=== PATIENT | male | born 1935 | race Caucasian/White ===

== ENCOUNTER 2017-02-17 10:48 | Emergency (ER) | payer MEDICARE ==
[2017-02-17 11:14] LABS: #Basophils 0.1 thou/uL (0.0-0.2); #Eosinphils 0.1 thou/uL (0.0-0.7); #Lymphocytes 2.3 thou/uL (1.20-3.40); #Monocytes 0.7 thou/uL (0.11-0.59); #Neutrophils 6.4 thou/uL (1.40-6.50); %Basophils 0.9 % (0.0-1.0); %Eosinophils 1.4 % (0.0-10.0); %Lymphocytes 24.1 % (21.0-51.0); %Monocytes 7.5 % (0.0-10.0); Hematocrit 43.3 % (42.0-52.0); Mean Platelet Volume 8.4 fL (7.4-10.4); Red Blood Cell (RBC) Count 4.48 mill/uL (4.70-6.10); White Blood Cell (WBC) Count 9.7 thou/uL (4.8-10.8)
[2017-02-17] MEDS ORDERED: Fentanyl 100 MCG/2 ML VIAL ONE (11:30)
[2017-02-17] MEDS ORDERED: Ketorolac Tromethamine 30 MG/ML VIAL ONE (11:30)
[2017-02-17 11:40] LABS: ALT (SGPT) 11 U/L (8-55); AST (SGOT) 16 U/L (5-34); Alkaline Phosphatase 53 U/L (40-150); Anion Gap 13 mmol/L (10-20); BUN (Urea Nitrogen) 22 mg/dL (8.4-25.7); Bilirubin, Total 0.6 mg/dL (0.2-1.2); Calc. Creatinine Clearance 0 mL/min (70-130); Calcium 10.2 mg/dL (7.8-10.44); Carbon Dioxide 26 mmol/L (23-31); Chloride 104 mmol/L (98-107); Estimated GFR-MDRD 48; Globulin 3.3 g/dL (2.4-3.5); Lipase 39 U/L (8-78); Protein, Total 7.4 g/dL (5.8-8.1)
[2017-02-17] MEDS ORDERED: metroNIDAZOLE 500 MG/100 ML BAG ONE (11:51)
--- NOTE | 2017-02-17 12:57 | CT ---
ABDOMEN CT WITH CONTRAST PELVIC CT WITH CONTRAST: History: Left flank pain, left lower quadrant pain. Patient has a history of diverticulitis. Comparison: 09-09-11 Technique: An abdomen and pelvic CT are performed with IV contrast. Enteric contrast was not adminis tered. Coronal reformatted images are submitted for interpretation. FINDINGS: ABDOMEN CT: Lung bases are clear. Heart size is normal. No significant pericardial fluid. The descending thoraci c aorta and abdominal aorta have an overall normal caliber. The aortic bifurcation is unremarkable. There is atherosclerosis. No periaortic fat stranding. Intra and extrahepatic portal vein is patent. There are stable hypodensities involving the liver which are too small to characterize but are stati stically favored to be cysts. The spleen, pancreas, and adrenal glands have appropriate enhancement. There is mild bilateral renal cortical thinning. No evidence of hydronephrosis, nephrolithiasis, or perinephric fat stranding. Stable exophytic hypodensity emanating from the left kidney compatible wi th a simple cyst. Bilateral ureters have a normal caliber. No hydroureter, periureteral fat strandin g or ureterolithiasis. No gastrohepatic, retrocrural or periportal lymphadenopathy. No mesenteric mass, lymphadenopathy, fr ee air or free fluid. Evaluation of the alimentary canal is limited by lack of oral contrast. Gastric mucosa, duodenum, an d multiple normal in caliber small bowel loops are noted. Ileocecal junction is normal. Appendix is not appreciated. No inflammation of the cecal apex. There are scattered diverticula throughout a non distended, nondilated colon. The majority of the diverticula involve the descending colon and sigmoi d colon. There is no evidence of chronic wall thickening or pericolonic fat stranding to suggest div erticulitis. There are post surgical changes. PELVIC CT: Urinary bladder is unremarkable. No pelvic mass, lymphadenopathy, free air or free fluid. There are no osteoblastic or osteolytic lesions. There are degenerative changes of the lumbar spine. IMPRESSION: 1. No acute abnormality in the abdomen or pelvis. 2. Diverticulosis, without evidence of diverticulitis. POS: [facility]
[2017-02-17 13:03] LABS: Lactic Acid - Sepsis 2.2 mmol/L (0.5-2.2)
[2017-02-17 13:05] LABS: Bilirubin Negative (Negative); Blood, Urine Small (Negative); Glucose, Urine (Dipstick) Negative (Negative); Ketone, Urine Negative (Negative); Nitrite Negative (Negative); Protein, Urine (Dipstick) Negative (Neg-Trace); Urobilinogen 0.2 mg/dL (0.2-1.0)
[2017-02-17 13:07] LABS: Bacteria/HPF None Seen HPF (None Seen); Hyaline Casts/LPF 0-3 HYALINE CAST LPF (0-3 Hyaline); Squamous Epithelial None Seen HPF (0-3); WBC/HPF 0-3 HPF (0-3)
[2017-02-17] MEDS ORDERED: ISOVUE-370 76%-LOCM 1 ML ONE (16:01)
== END 2017-02-17 13:53 | disposition home or self-care (01) ==
LOC: ERS 10:48
DX: K57.92 Diverticulitis of intestine, part unspecified, without perforation or abscess without bleeding (principal); I10 Essential (primary) hypertension; E78.5 Hyperlipidemia, unspecified; Z79.899 Other long term (current) drug therapy; Z79.82 Long term (current) use of aspirin
CPT/HCPCS: 36415; 74177; 80053; 81003; 81015; 83605; 83690; 85025; 96361; 96365; 96367; 96375; J0744; J1885; J3010

== ENCOUNTER 2017-11-18 11:21 | Emergency (ER) | payer MEDICARE ==
--- NOTE | 2017-11-18 12:24 | RAD ---
LEFT ANKLE 3 VIEWS: Date: 11/18/17 HISTORY: 82-year-old male with history of left ankle injury yesterday. FINDINGS: Lateral soft tissue swelling. No acute fracture or dislocation. Plantar enthesophytes. IMPRESSION: Minimal degenerative changes without fracture or dislocation. Lateral soft tissue swelling. POS: [facility]
== END 2017-11-18 12:38 | disposition home or self-care (01) ==
LOC: ERS 11:21
DX: S93.402A Sprain of unspecified ligament of left ankle, initial encounter (principal); E78.5 Hyperlipidemia, unspecified; I10 Essential (primary) hypertension; K21.9 Gastro-esophageal reflux disease without esophagitis; Z71.6 Tobacco abuse counseling; X50.0XXA Overexertion from strenuous movement or load, initial encounter; Y93.01 Activity, walking, marching and hiking
CPT/HCPCS: 99406

== ENCOUNTER 2020-09-13 09:12 | Outpatient (CLI) | payer MEDICARE ==
[2020-09-13 10:31] LABS: Hemoglobin 13.6 g/dL (13.5-17.5); Mean Corpuscular Hemoglobin 31.3 pg (27.0-33.0); Mean Corpuscular Volume 94.9 fl (81.2-95.1); Mean Platelet Volume 11.4 fl (7.4-10.4); Platelet Count 219 10x3/uL (150-450); RBC Distribution Width 13.1 % (11.5-14.5); Red Blood Cell (RBC) Count 4.34 10x6/uL (4.32-5.72); White Blood Cell (WBC) Count 8.2 10x3/uL (3.5-10.5)
[2020-09-13 11:18] LABS: Anion Gap 14 mmol/L (10-20); BUN (Urea Nitrogen) 26 mg/dL (8.4-25.7); Calc. Creatinine Clearance 0 mL/min (70-130); Calcium 10.4 mg/dL (7.8-10.44); Carbon Dioxide 26 mmol/L (23-31); Chloride 103 mmol/L (98-107); Glucose 73 mg/dL (83-110); Potassium 4.3 mmol/L (3.5-5.1); Sodium 139 mmol/L (136-145)
[2020-09-13 16:44] LABS: SARS-CoV-2 PCR by NAA Not Detected (NotDetected)
== END 2020-09-13 09:13 | disposition home or self-care (01) ==
LOC: LABBT 09:12
PROVIDERS: ATTEND Urology
DX: Z01.818 Encounter for other preprocedural examination (principal); N40.1 Benign prostatic hyperplasia with lower urinary tract symptoms; Z20.822 Contact with and (suspected) exposure to COVID-19
CPT/HCPCS: 80048; 85027; 93005; U0003; U0005; 87635; 93010

== ENCOUNTER 2020-09-18 11:48 | Observation (INO) | payer MEDICARE ==
[2020-09-17 16:22] VITALS: BMI 29.2
[2020-09-18] MEDS ORDERED: Levofloxacin 500 mg/D5W 100 ml Premix Bag ONE (13:35)
[2020-09-18] MEDS ORDERED: Fentanyl 100 MCG/2 ML VIAL ONE ×2 (14:37→17:15)
[2020-09-18] MEDS ORDERED: Famotidine/PF 20 mg/2ml Vial ONE (14:37)
[2020-09-18] MEDS ORDERED: Lidocaine 1% PF 5 ML VIAL ONE (15:00)
[2020-09-18] MEDS ORDERED: Ondansetron PF 4 MG/2 ML Vial ONE (15:00)
[2020-09-18] MEDS ORDERED: PROPOFOL 200 MG/20 ML VIAL ONE (15:00)
[2020-09-18] MEDS ORDERED: Metoclopramide HCl 10 MG/2 ML VIAL ONE (15:00)
[2020-09-18] MEDS ORDERED: Ondansetron PF 4 MG/2 ML Vial IVP PRN (16:21)
[2020-09-18] MEDS ORDERED: hydrALAZINE 20 MG/ML VIAL SLOW IVP PRN (16:21)
[2020-09-18] MEDS ORDERED: Zolpidem Tartrate 5 MG TAB PO PRN (16:21)
[2020-09-18] MEDS ORDERED: Oxybutynin 5 MG TAB PO PRN (16:21)
[2020-09-18] MEDS ORDERED: Ketorolac Tromethamine 30 MG/ML VIAL IVP PRN (16:21)
[2020-09-18] MEDS ORDERED: diphenhydrAMINE 50 MG/ML VIAL IVP PRN (16:21)
[2020-09-18] MEDS ORDERED: Morphine 4 MG/ML VIAL SLOW IVP PRN (16:28)
[2020-09-18] MEDS ORDERED: HYDROcodone/Acetaminophen 5/325 mg Tablet ONE (20:35)
[2020-09-18] MEDS: HYDROcodone/Acetaminophen 5/325 mg Tablet PO PRN (20:40)
[2020-09-18] MEDS: Sodium Chloride 0.9% 1,000 ML IV SCH (20:43)
[2020-09-18] MEDS: Docusate 100 MG CAP PO SCH (20:43)
[2020-09-18] MEDS ORDERED: Doxepin HCl 10 MG CAP PO SCH (21:00)
[2020-09-18] MEDS ORDERED: Atorvastatin Calcium 10 MG TAB PO SCH (21:00)
[2020-09-19] MEDS ORDERED: Ketorolac Tromethamine 30 MG/ML VIAL ONE (01:55)
[2020-09-19] MEDS ORDERED: HYDROcodone/Acetaminophen 5/325 mg Tablet ONE (01:55)
[2020-09-19] MEDS: HYDROcodone/Acetaminophen 5/325 mg Tablet PO PRN (02:03)
[2020-09-19] MEDS ORDERED: Cepastat Lozenges 1 LOZ PO PRN (02:36)
[2020-09-19] MEDS ORDERED: Levothyroxine Sodium 25 MCG TAB PO SCH (06:00)
[2020-09-19] MEDS: Sodium Chloride 0.9% 1,000 ML IV SCH (06:47)
[2020-09-19] MEDS ORDERED: Tamsulosin HCl 0.4 MG CAP ONE (08:01)
[2020-09-19] MEDS ORDERED: Aspirin 81 mg Enteric Coated Tablet PO SCH (09:00)
[2020-09-19] MEDS ORDERED: Allopurinol 100 MG TAB PO SCH (09:00)
[2020-09-19] MEDS ORDERED: Tamsulosin HCl 0.4 MG CAP PO SCH (09:00)
[2020-09-19] MEDS ORDERED: Lisinopril/Hydrochlorothiazide 20/25 mg Tablet PO SCH (09:00)
[2020-09-19] MEDS ORDERED: ALPRAZolam 0.25 MG TAB PO SCH (09:00)
[2020-09-19] MEDS ORDERED: Naproxen 500 MG TAB PO SCH (09:00)
[2020-09-19] MEDS: Docusate 100 MG CAP PO SCH (09:47)
[2020-09-19 12:42] VITALS: BP 158/86; TEMP 97.7
== END 2020-09-19 12:40 | disposition home or self-care (01) ==
LOC: SDC 11:48 → PACU-TCU 16:20
PROVIDERS: ADMIT Urology; ATTEND Urology
PROC: 0VT08ZZ Resection of Prostate, Via Natural or Artificial Opening Endoscopic (ICD-10-PCS; principal; 2020-09-18)
DX: N40.1 Benign prostatic hyperplasia with lower urinary tract symptoms (principal); R39.12 Poor urinary stream; R39.15 Urgency of urination; R39.16 Straining to void; R35.0 Frequency of micturition; I10 Essential (primary) hypertension; E78.5 Hyperlipidemia, unspecified; K21.9 Gastro-esophageal reflux disease without esophagitis; Z79.899 Other long term (current) drug therapy
CPT/HCPCS: 52601; 88305; 96374; G0378 ×2; J1885; J1956; J2405; J2704; J2765; J3010; S0028

== ENCOUNTER 2020-09-28 16:48 | Inpatient (IN) | payer MEDICARE ==
[2020-09-28 17:15] LABS: Bilirubin Negative (Negative); Blood, Urine 3+ (Negative); Clarity Turbid (Clear); Glucose, Urine (Dipstick) Normal (Negative); Ketone, Urine Negative (Negative); Leukocyte 75 Leu/uL (Negative); Nitrite Negative (Negative); Protein, Urine (Dipstick) 100 mg/dL (Neg-Trace); RBC/HPF Greater than 50 HPF (0-3); Specific Gravity, Urine 1.017 (1.002-1.036); Urobilinogen Normal mg/dL (Less than 2); pH, Urine 6.5 (5.0-9.0)
[2020-09-28 17:16] LABS: Bacteria/HPF 4+ HPF (None Seen); Squamous Epithelial None Seen HPF (0-3); WBC/HPF Greater than 50 HPF (0-3)
[2020-09-28 17:31] LABS: #Basophils 0.1 thou/uL (0.0-0.2); #Eosinphils 0.2 thou/uL (0.0-0.7); #Lymphocytes 2.6 thou/uL (1.20-3.40); #Monocytes 0.6 thou/uL (0.11-0.59); #Neutrophils 5.2 thou/uL (1.40-6.50); %Basophils 0.9 % (0.0-1.0); %Eosinophils 1.8 % (0.0-10.0); %Lymphocytes 30.4 % (21.0-51.0); %Monocytes 7.1 % (0.0-10.0); %Neutrophils 59.8 % (42.0-75.0); Hemoglobin 12.9 g/dL (14.0-18.0); Mean Corpuscular HGB CONC 35.3 g/dL (32.0-36.0); Mean Corpuscular Hemoglobin 33.6 pg (27.0-31.0); Mean Platelet Volume 8.5 fL (7.4-10.4); Platelet Count 239 thou/uL (130-400); RBC Distribution Width 11.5 % (11.5-14.5); Red Blood Cell (RBC) Count 3.84 mill/uL (4.70-6.10); White Blood Cell (WBC) Count 8.7 thou/uL (4.8-10.8)
[2020-09-28 17:46] LABS: ALT (SGPT) 15 U/L (8-55); AST (SGOT) 21 U/L (5-34); Albumin 3.7 g/dL (3.4-4.8); Alkaline Phosphatase 57 U/L (40-110); Anion Gap 14 mmol/L (10-20); BUN (Urea Nitrogen) 30 mg/dL (8.4-25.7); Bilirubin, Total 0.5 mg/dL (0.2-1.2); CK (CPK) 111 U/L (30-200); Calc. Creatinine Clearance 0 mL/min (70-130); Carbon Dioxide 21 mmol/L (23-31); Chloride 105 mmol/L (98-107); Glucose 118 mg/dL (83-110); Lipase 56 U/L (8-78); Magnesium 1.7 mg/dL (1.6-2.6); Potassium 3.7 mmol/L (3.5-5.1); Protein, Total 6.7 g/dL (5.8-8.1); Sodium 136 mmol/L (136-145)
[2020-09-28] MEDS ORDERED: cefTRIAXone\\ROCEPHIN 1 GM VIAL ONE (18:20)
[2020-09-28] MEDS ORDERED: Acetaminophen 325 MG TAB PO PRN (19:51)
[2020-09-28] MEDS ORDERED: Bisacodyl 5 MG TAB PO PRN (19:51)
[2020-09-28] MEDS ORDERED: Ondansetron PF 4 MG/2 ML Vial IVP PRN (19:51)
[2020-09-28] MEDS: Sodium Chloride 0.9% 1,000 ML IV SCH (22:08)
[2020-09-28] MEDS: Famotidine/PF 20 mg/2ml Vial SLOW IVP SCH (22:20)
[2020-09-28] MEDS: Heparin 5,000 UNITS/ML VIAL SC SCH (22:20)
[2020-09-28 22:29] VITALS: BMI 27.0
[2020-09-29 03:29] LABS: SARS-CoV-2 NAA Rapid Test Not Detected (NotDetected)
[2020-09-29 05:26] LABS: #Basophils 0.1 thou/uL (0.0-0.2); #Eosinphils 0.3 thou/uL (0.0-0.7); #Lymphocytes 3.1 thou/uL (1.20-3.40); #Monocytes 0.7 thou/uL (0.11-0.59); #Neutrophils 4.1 thou/uL (1.40-6.50); %Basophils 0.9 % (0.0-1.0); %Eosinophils 3.7 % (0.0-10.0); %Lymphocytes 37.4 % (21.0-51.0); %Monocytes 8.9 % (0.0-10.0); %Neutrophils 49.1 % (42.0-75.0); Mean Corpuscular HGB CONC 34.9 g/dL (32.0-36.0); Mean Corpuscular Hemoglobin 33.3 pg (27.0-31.0); Mean Corpuscular Volume 95.3 fL (78.0-98.0); Mean Platelet Volume 8.7 fL (7.4-10.4); Platelet Count 218 thou/uL (130-400); RBC Distribution Width 11.7 % (11.5-14.5); White Blood Cell (WBC) Count 8.4 thou/uL (4.8-10.8)
[2020-09-29 05:46] LABS: ALT (SGPT) 13 U/L (8-55); AST (SGOT) 18 U/L (5-34); Albumin 3.3 g/dL (3.4-4.8); Alkaline Phosphatase 53 U/L (40-110); Anion Gap 9 mmol/L (10-20); BUN (Urea Nitrogen) 25 mg/dL (8.4-25.7); Bilirubin, Total 0.3 mg/dL (0.2-1.2); Calc. Creatinine Clearance 59 mL/min (70-130); Calcium 9.2 mg/dL (7.8-10.44); Carbon Dioxide 24 mmol/L (23-31); Chloride 108 mmol/L (98-107); Globulin 2.7 g/dL (2.4-3.5); Glucose 91 mg/dL (83-110); Potassium 3.6 mmol/L (3.5-5.1); Sodium 137 mmol/L (136-145)
[2020-09-29] MEDS: Heparin 5,000 UNITS/ML VIAL SC SCH ×3 (08:53→22:10)
[2020-09-29] MEDS: Sodium Chloride 0.9% 1,000 ML IV SCH (08:54)
[2020-09-29] MEDS ORDERED: Magnevist 469MG/ML 20 ML VIAL ONE (13:06)
[2020-09-29] MEDS: VANCOMYCIN 1.25 GM/250 ML BAG 1.25 GM in Premix Bag 1 BAG IVPB SCH (14:05)
[2020-09-29 15:09] LABS: Free T4 (Free Thyroxine) 0.78 ng/dL (0.70-1.48); Thyroid Stimulating Hormone 0.504 uIU/mL (0.35-4.94)
[2020-09-29] MEDS: Piperacillin/Tazobactam 3.375 GM in Sodium Chloride 0.9% 100 ML IVPB SCH ×2 (16:15→23:59)
[2020-09-29] MEDS: Famotidine/PF 20 mg/2ml Vial SLOW IVP SCH (22:10)
[2020-09-30] MEDS: Piperacillin/Tazobactam 3.375 GM in Sodium Chloride 0.9% 100 ML IVPB SCH (05:30)
[2020-09-30] MEDS: Heparin 5,000 UNITS/ML VIAL SC SCH (08:09)
[2020-09-30] MEDS ORDERED: Vancomycin 1 GM in Premix Bag 1 BAG IVPB ONE (08:25)
[2020-09-30] MEDS ORDERED: ALPRAZolam 0.25 MG TAB PO PRN (12:09)
[2020-09-30] MEDS: VANCOMYCIN 1.25 GM/250 ML BAG 1.25 GM in Premix Bag 1 BAG IVPB SCH (13:31)
[2020-09-30] MEDS ORDERED: hydrALAZINE 20 MG/ML VIAL SLOW IVP PRN (15:53)
[2020-09-30] MEDS ORDERED: Labetalol HCl 100 MG/20 ML VIAL SLOW IVP PRN (15:53)
[2020-09-30] MEDS: Amlodipine 5 MG TAB PO SCH (20:41)
[2020-09-30] MEDS: Atorvastatin Calcium 10 MG TAB PO SCH (20:41)
[2020-09-30] MEDS: Famotidine/PF 20 mg/2ml Vial SLOW IVP SCH (20:41)
[2020-10-01 04:27] LABS: #Basophils 0.1 thou/uL (0.0-0.2); #Eosinphils 0.3 thou/uL (0.0-0.7); #Lymphocytes 2.9 thou/uL (1.20-3.40); #Monocytes 0.9 thou/uL (0.11-0.59); %Basophils 1.1 % (0.0-1.0); %Eosinophils 3.6 % (0.0-10.0); %Lymphocytes 31.1 % (21.0-51.0); %Monocytes 10.1 % (0.0-10.0); Hemoglobin 12.9 g/dL (14.0-18.0); Mean Corpuscular HGB CONC 35.2 g/dL (32.0-36.0); Mean Corpuscular Hemoglobin 33.5 pg (27.0-31.0); Mean Platelet Volume 8.8 fL (7.4-10.4); Platelet Count 217 thou/uL (130-400); RBC Distribution Width 11.8 % (11.5-14.5); Red Blood Cell (RBC) Count 3.84 mill/uL (4.70-6.10); White Blood Cell (WBC) Count 9.2 thou/uL (4.8-10.8)
[2020-10-01 04:51] LABS: Anion Gap 10 mmol/L (10-20); BUN (Urea Nitrogen) 16 mg/dL (8.4-25.7); Calc. Creatinine Clearance 69 mL/min (70-130); Calcium 9.8 mg/dL (7.8-10.44); Carbon Dioxide 23 mmol/L (23-31); Chloride 107 mmol/L (98-107); Glucose 83 mg/dL (83-110); Magnesium 1.6 mg/dL (1.6-2.6); Potassium 3.6 mmol/L (3.5-5.1); Sodium 136 mmol/L (136-145)
[2020-10-01] MEDS: Levothyroxine Sodium 25 MCG TAB PO SCH (05:07)
[2020-10-01] MEDS: Tamsulosin HCl 0.4 MG CAP PO SCH (08:07)
[2020-10-01] MEDS: Allopurinol 100 MG TAB PO SCH (08:07)
[2020-10-01 12:56] LABS: Vancomycin, Trough 8.6 ug/mL
[2020-10-01] MEDS ORDERED: VANCOMYCIN 2 GRAM/400 ML BAG 2 GM in Premix Bag 1 BAG IVPB SCH (13:15)
[2020-10-01] MEDS: VANCOMYCIN 1.25 GM/250 ML BAG 1.25 GM in Premix Bag 1 BAG IVPB SCH (20:03)
[2020-10-01] MEDS: Famotidine/PF 20 mg/2ml Vial SLOW IVP SCH (20:23)
[2020-10-01] MEDS: Amlodipine 5 MG TAB PO SCH (20:23)
[2020-10-01] MEDS: Atorvastatin Calcium 10 MG TAB PO SCH (20:23)
[2020-10-02 04:45] LABS: #Eosinphils 0.4 thou/uL (0.0-0.7); #Lymphocytes 2.9 thou/uL (1.20-3.40); #Monocytes 0.9 thou/uL (0.11-0.59); #Neutrophils 4.1 thou/uL (1.40-6.50); %Basophils 0.6 % (0.0-1.0); %Eosinophils 4.7 % (0.0-10.0); %Lymphocytes 34.7 % (21.0-51.0); %Monocytes 10.7 % (0.0-10.0); %Neutrophils 49.4 % (42.0-75.0); Hemoglobin 12.9 g/dL (14.0-18.0); Mean Corpuscular HGB CONC 33.9 g/dL (32.0-36.0); Mean Corpuscular Hemoglobin 32.4 pg (27.0-31.0); Mean Corpuscular Volume 95.6 fL (78.0-98.0); Mean Platelet Volume 8.2 fL (7.4-10.4); Platelet Count 222 thou/uL (130-400); RBC Distribution Width 11.9 % (11.5-14.5); Red Blood Cell (RBC) Count 3.98 mill/uL (4.70-6.10); White Blood Cell (WBC) Count 8.3 thou/uL (4.8-10.8)
[2020-10-02 05:11] LABS: Anion Gap 11 mmol/L (10-20); BUN (Urea Nitrogen) 17 mg/dL (8.4-25.7); Calc. Creatinine Clearance 66 mL/min (70-130); Calcium 9.7 mg/dL (7.8-10.44); Carbon Dioxide 23 mmol/L (23-31); Chloride 106 mmol/L (98-107); Glucose 85 mg/dL (83-110); Magnesium 1.7 mg/dL (1.6-2.6); Potassium 4.2 mmol/L (3.5-5.1); Sodium 136 mmol/L (136-145)
[2020-10-02] MEDS: Levothyroxine Sodium 25 MCG TAB PO SCH (05:12)
[2020-10-02 08:13] VITALS: TEMP 98.1
[2020-10-02] MEDS: Tamsulosin HCl 0.4 MG CAP PO SCH (08:13)
[2020-10-02] MEDS: Allopurinol 100 MG TAB PO SCH (08:13)
[2020-10-02] MEDS ORDERED: Lisinopril/Hydrochlorothiazide 20/25 mg Tablet PO SCH (09:00)
[2020-10-02 12:31] VITALS: BP 128/70
[2020-10-02] MEDS ORDERED: VANCOMYCIN 2 GRAM/400 ML BAG 2 GM in Premix Bag 1 BAG IVPB SCH (13:00)
== END 2020-10-02 14:26 | disposition home or self-care (01) | DRG 309 ==
LOC: ERS 16:48 → 2SW 18:35 → OBSVTOIN 09-29 19:00 → 2NO 09-30 14:20
PROVIDERS: ADMIT Internal Medicine; ATTEND Internal Medicine
PROC: 3E1K78Z Irrigation of Genitourinary Tract using Irrigating Substance, Via Natural or Artificial Opening (ICD-10-PCS; principal; 2020-09-30)
DX: R00.1 Bradycardia, unspecified (principal); N39.0 Urinary tract infection, site not specified; E87.1 Hypo-osmolality and hyponatremia; N17.9 Acute kidney failure, unspecified; N99.820 Postprocedural hemorrhage of a genitourinary system organ or structure following a genitourinary system procedure; T83.511A Infection and inflammatory reaction due to indwelling urethral catheter, initial encounter; Z20.822 Contact with and (suspected) exposure to COVID-19; D35.2 Benign neoplasm of pituitary gland; I10 Essential (primary) hypertension; R31.0 Gross hematuria; E78.5 Hyperlipidemia, unspecified; E03.9 Hypothyroidism, unspecified; I25.10 Atherosclerotic heart disease of native coronary artery without angina pectoris; E86.0 Dehydration; I48.91 Unspecified atrial fibrillation; K21.9 Gastro-esophageal reflux disease without esophagitis; M19.90 Unspecified osteoarthritis, unspecified site; F41.9 Anxiety disorder, unspecified; M10.9 Gout, unspecified; I08.3 Combined rheumatic disorders of mitral, aortic and tricuspid valves; Y83.8 Other surgical procedures as the cause of abnormal reaction of the patient, or of later complication, without mention of misadventure at the time of the procedure; E86.9 Volume depletion, unspecified; B95.7 Other staphylococcus as the cause of diseases classified elsewhere; Y84.6 Urinary catheterization as the cause of abnormal reaction of the patient, or of later complication, without mention of misadventure at the time of the procedure; Z79.899 Other long term (current) drug therapy; Z79.82 Long term (current) use of aspirin; Z79.890 Hormone replacement therapy; Z98.890 Other specified postprocedural states; Z87.440 Personal history of urinary (tract) infections
CPT/HCPCS: 36415; 70450; 70553; 71045; 80048; 80053; 80202; 81003; 81015; 82533; 82550; 83690; 83735; 83880; 84439; 84443; 84484; 85025; 87077; 87086; 87186; 87635; 93005; 93306; 93880; 96365; 96372; 96375; A9579; G0378; J0360; J0696; J1644; J2543; J3370; J3490; S0028; U0002; U0003; U0005

== ENCOUNTER 2021-07-09 13:09 | Outpatient (CLI) | payer MEDICARE ==
[~2021-07-09 13:09] MED LIST: Magnevist 469MG/ML 20 ML VIAL ONE
== END 2021-07-09 13:10 | disposition home or self-care (01) ==
LOC: MRI 13:09
PROVIDERS: ATTEND Neurological Surgery
DX: D49.7 Neoplasm of unspecified behavior of endocrine glands and other parts of nervous system (principal); D35.2 Benign neoplasm of pituitary gland; I67.82 Cerebral ischemia
CPT/HCPCS: 70553; 82565

== ENCOUNTER 2022-07-12 13:01 | Emergency (ER) | payer OTHER, MEDICARE ==
[2022-07-12] MEDS ORDERED: Lidocaine 1% w/Epinephrine 1:100K 20 ML VIAL ONE (13:51)
== END 2022-07-12 16:06 | disposition home or self-care (01) ==
LOC: ERS 13:01
DX: S01.81XA Laceration without foreign body of other part of head, initial encounter (principal); K21.9 Gastro-esophageal reflux disease without esophagitis; E78.00 Pure hypercholesterolemia, unspecified; I10 Essential (primary) hypertension; W01.198A Fall on same level from slipping, tripping and stumbling with subsequent striking against other object, initial encounter
CPT/HCPCS: 12013; 70450

== ENCOUNTER 2022-09-18 09:47 | Outpatient (CLI) | payer MEDICARE ==
[2022-09-18] MEDS ORDERED: Magnevist 469MG/ML 20 ML VIAL ONE (11:02)
== END 2022-09-18 09:48 | disposition home or self-care (01) ==
LOC: TBSIIMAG 09:47
PROVIDERS: ATTEND Neurological Surgery
DX: D35.2 Benign neoplasm of pituitary gland (principal); I67.82 Cerebral ischemia
CPT/HCPCS: 70553; 82565

== ENCOUNTER 2022-12-12 13:13 | Inpatient (IN) | payer MEDICARE ==
[~2022-12-12 13:13] MED LIST changes: +Iopamidol-370 76% 500 ML MDV (1 ML CHARGE) ONE; -Magnevist 469MG/ML 20 ML VIAL ONE
[2022-12-12 15:08] LABS: #Basophils 0.1 thou/uL (0.0-0.2); #Eosinphils 0.2 thou/uL (0.0-0.7); #Monocytes 0.9 thou/uL (0.11-0.59); %Basophils 1.1 % (0.0-1.0); %Eosinophils 2.5 % (0.0-10.0); %Lymphocytes 37.9 % (21.0-51.0); %Monocytes 10.4 % (0.0-10.0); %Neutrophils 47.9 % (42.0-75.0); Hematocrit 31.4 % (42.0-52.0); Hemoglobin 10.4 g/dL (14.0-18.0); Mean Corpuscular HGB CONC 33.1 g/dL (32.0-36.0); Mean Corpuscular Hemoglobin 31.6 pg (27.0-31.0); Mean Corpuscular Volume 95.4 fl (78.0-98.0); Mean Platelet Volume 10.6 fL (7.4-10.4); Platelet Count 248 10x3/uL (130-400); RBC Distribution Width 13.5 % (11.5-14.5); Red Blood Cell (RBC) Count 3.29 mill/uL (4.70-6.10); White Blood Cell (WBC) Count 8.3 10x3/uL (4.8-10.8)
[2022-12-12] MEDS ORDERED: Vancomycin 1 GM/200 ML (FROZEN) BAG ONE (15:28)
[2022-12-12] MEDS ORDERED: cefTRIAXone (ROCEPHIN) 2 GM VIAL ONE (15:28)
[2022-12-12 15:36] LABS: ALT (SGPT) 11 U/L (8-55); AST (SGOT) 22 U/L (5-34); Albumin 3.8 g/dL (3.4-4.8); Alkaline Phosphatase 72 U/L (40-110); Anion Gap 12 mmol/L (10-20); BUN (Urea Nitrogen) 18 mg/dL (8.4-25.7); Bilirubin, Total 0.4 mg/dL (0.2-1.2); Calc. Creatinine Clearance 0 mL/min (70-130); Calcium 10.5 mg/dL (7.8-10.44); Carbon Dioxide 24 mmol/L (23-31); Chloride 103 mmol/L (98-107); Estimated GFR 56; Globulin 3.4 g/dL (2.4-3.5); Glucose 95 mg/dL (83-110); Potassium 4.7 mmol/L (3.5-5.1); Protein, Total 7.2 g/dL (5.8-8.1); Sodium 134 mmol/L (136-145)
[2022-12-12 20:39] VITALS: BMI 26.1
[2022-12-12] MEDS ORDERED: Polyethylene Glycol 3350 17 GM Packet PO SCH (21:00)
[2022-12-12] MEDS ORDERED: Bisacodyl 5 MG TAB PO PRN (21:22)
[2022-12-12] MEDS: HYDROcodone/Acetaminophen 5/325 mg Tablet PO SCH ×2 (22:18→22:19)
[2022-12-12] MEDS: ALPRAZolam 0.25 MG TAB PO PRN (22:21)
[2022-12-13] MEDS: Levothyroxine Sodium 25 MCG TAB PO SCH (06:06)
[2022-12-13] MEDS ORDERED: Vancomycin 1.5 GRAM/300 ML BAG 1.5 GM in Premix Bag 1 BAG IVPB SCH (09:00)
[2022-12-13] MEDS: Allopurinol 100 MG TAB PO SCH (09:22)
[2022-12-13] MEDS: Tamsulosin HCl 0.4 MG CAP PO SCH (09:22)
[2022-12-13] MEDS: Polyethylene Glycol 3350 17 GM Packet PO SCH (09:22)
[2022-12-13] MEDS: Lisinopril/Hydrochlorothiazide 20/25 mg Tablet PO SCH (09:22)
[2022-12-13] MEDS ORDERED: Magnevist 469MG/ML 20 ML VIAL ONE (10:42)
[2022-12-13] MEDS: VANCOMYCIN 1.25 GM/250 ML BAG 1.25 GM in Premix Bag 1 BAG IVPB SCH (16:30)
[2022-12-13] MEDS: Amlodipine 5 MG TAB PO SCH (20:54)
[2022-12-13] MEDS: Atorvastatin Calcium 10 MG TAB PO SCH (20:54)
[2022-12-13] MEDS: ALPRAZolam 0.25 MG TAB PO PRN (20:56)
[2022-12-14] MEDS: Levothyroxine Sodium 25 MCG TAB PO SCH (06:39)
[2022-12-14] MEDS: Polyethylene Glycol 3350 17 GM Packet PO SCH (08:30)
[2022-12-14] MEDS: Allopurinol 100 MG TAB PO SCH (08:30)
[2022-12-14] MEDS: Tamsulosin HCl 0.4 MG CAP PO SCH (08:30)
[2022-12-14] MEDS: Lisinopril/Hydrochlorothiazide 20/25 mg Tablet PO SCH (08:30)
[2022-12-14] MEDS: VANCOMYCIN 1.25 GM/250 ML BAG 1.25 GM in Premix Bag 1 BAG IVPB SCH (15:32)
[2022-12-14] MEDS: Tetrahydrozoline 0.05% OPTH 15 ML BOT L EYE PRN (17:03)
[2022-12-14] MEDS: ALPRAZolam 0.25 MG TAB PO PRN (21:04)
[2022-12-14] MEDS: Amlodipine 5 MG TAB PO SCH (21:04)
[2022-12-14] MEDS: Atorvastatin Calcium 10 MG TAB PO SCH (21:04)
[2022-12-15] MEDS: Levothyroxine Sodium 25 MCG TAB PO SCH (05:42)
[2022-12-15] MEDS: Tetrahydrozoline 0.05% OPTH 15 ML BOT L EYE PRN (05:42)
[2022-12-15] MEDS: Allopurinol 100 MG TAB PO SCH (08:22)
[2022-12-15] MEDS: Lisinopril/Hydrochlorothiazide 20/25 mg Tablet PO SCH (08:22)
[2022-12-15] MEDS: Polyethylene Glycol 3350 17 GM Packet PO SCH (08:22)
[2022-12-15] MEDS: Tamsulosin HCl 0.4 MG CAP PO SCH (08:22)
[2022-12-15 08:55] VITALS: BP 106/64; TEMP 97.7
== END 2022-12-15 14:34 | disposition home health service (06) | DRG 603 ==
LOC: ERS 13:13 → T4-A 18:40 → OBSVTOIN 12-13 17:22
PROVIDERS: ADMIT Family Medicine; ATTEND Internal Medicine
PROC: 0J9P0ZZ Drainage of Left Lower Leg Subcutaneous Tissue and Fascia, Open Approach (ICD-10-PCS; principal; 2022-12-12)
DX: L02.416 Cutaneous abscess of left lower limb (principal); I10 Essential (primary) hypertension; K21.9 Gastro-esophageal reflux disease without esophagitis; E78.5 Hyperlipidemia, unspecified; M10.9 Gout, unspecified; Z96.653 Presence of artificial knee joint, bilateral; N40.0 Benign prostatic hyperplasia without lower urinary tract symptoms; D64.9 Anemia, unspecified; M60.9 Myositis, unspecified; Z89.022 Acquired absence of left finger(s); Z98.890 Other specified postprocedural states; Z90.49 Acquired absence of other specified parts of digestive tract; Z79.899 Other long term (current) drug therapy; Z79.890 Hormone replacement therapy
CPT/HCPCS: 36415; 80053; 82565; 83605; 85025; 87040; 87070; 87077; 87186; 87205; 96365; 96367; 96376; 97139; A9579; G0378; J0696; J3370; J3370-JW; Q9967